=== PATIENT | female | born 1975 | race Two or more races ===

== ENCOUNTER 2017-03-19 20:38 | Emergency (ER) | payer OTHER ==
[~2017-03-19] VITALS: Ht 162.6 cm; Wt 172.4 kg
[2017-03-19 20:55] VITALS: BP 129/66
[2017-03-19] MEDS ORDERED: IV NORMAL SALINE 1000ML BAG 1,000 ML IV SCH (20:56)
[2017-03-19] MEDS ORDERED: DEXAMETHASONE SOD PHOS 20 MG/5 ML VIAL. IV ONE (21:00)
[2017-03-19] MEDS ORDERED: 0.9 % SODIUM CHLORIDE 10 ML DISP.SYRIN. IV PRN (21:00)
--- NOTE | 2017-03-19 21:04 | PHYS DOC ---
Past Medical History Past Medical History: Cancer, Diabetes-Type II, Hypertension, Other Additional Past Medical Histor: thyroid CA Past Surgical History: , Other Additional Past Surgical Histo: thyroidectomy Alcohol Use: Occasionally Drug Use: None Adult General Chief Complaint Chief Complaint: BLOOD SUGAR PROBLEM HPI HPI This is a pleasant 42-year-old diabetic hypertensive female who presents with 3 day history of sore throat that began as a dry oropharynx has gotten progressively worse. At home and at work she's had sick contacts with similar symptoms and she is worried she has strep throat. She has also noted the pain is Worse with swallowing not changed with position. She denies any change in voice, fevers that documented, but she has complained of chills. She is also noted that her sugars out of control although she admits that she has not used her insulin and several weeks secondary to financial challenges and she has not been able to replace her insulin stores. Patient denies any neck stiffness, trauma, headache, runny nose, ear pain, drainage, hearing loss, facial swelling , or neurologic deficit. Review of Systems Review of Systems Constitutional: Denies fever she does complain of chills Eyes: Denies change in visual acuity, redness, or eye pain [] HENT: Denies nasal congestion she does complain of sore throat Respiratory: Denies cough or shortness of breath [] Cardiovascular: No additional information not addressed in HPI [] GI: Denies abdominal pain, nausea, vomiting, bloody stools or diarrhea [] : Denies dysuria or hematuria [] Musculoskeletal: Denies back pain or joint pain [] Integument: Denies rash or skin lesions [] Neurologic: Denies headache, focal weakness or sensory changes [] Endocrine: Denies polyuria or polydipsia [] Current Medications Current Medications Current Medications Medications (Trade) Dose Ordered Sig/Berhane Start Time Stop Time Status Last Admin Dose Admin Dexamethasone Sodium Phosphate (Decadron) 10 mg 1X ONCE 03/19/17 21:00 03/19/17 21:05 DC 03/19/17 21:21 10 MG Sodium Chloride (Normal Saline Flush) 10 ml QSHIFT PRN 03/19/17 21:00 Allergies Allergies Allergies Coded Allergies Type Severity Reaction Last Updated Verified cefuroxime Allergy Severe hives, tongue and eyes swell 12/30/14 Yes doxycycline Allergy Intermediate 12/30/14 Yes shellfish derived Allergy Intermediate 12/30/14 Yes Physical Exam Physical Exam Constitutional: Well developed, well nourished, no acute distress, non-toxic appearance. [] HENT: Normocephalic, atraumatic, bilateral external ears normal, oropharynx does demonstrate erythema, no oral exudates, mild tonsillar hypertrophy. 2, no buccal lesions, no facial swelling no anterior neck fullness or pain. Eyes: PERRLA, EOMI, conjunctiva normal, no discharge. [] Neck: Normal range of motion, no tenderness, supple, no stridor. [] Cardiovascular:Heart rate regular rhythm, no murmur [] Lungs & Thorax: Bilateral breath sounds clear to auscultation [] Abdomen: Bowel sounds normal, soft, no tenderness, no masses, no pulsatile masses. [] Skin: Warm, dry, no erythema, no rash. [] Back: No tenderness, no CVA tenderness. [] Extremities: No tenderness, no cyanosis, no clubbing, ROM intact, no edema. [] Neurologic: Alert and oriented X 3, normal motor function, normal sensory function, no focal deficits noted. [] Psychologic: Affect normal, judgement normal, mood normal. [] Current Patient Data Vital Signs Vital Signs Date Time Temp Pulse Resp B/P (MAP) Pulse Ox O2 Delivery O2 Flow Rate FiO2 03/19/17 20:55 97.1 88 20 129/66 (87) 98 Room Air 97.1 Lab Values Laboratory Tests Test 03/19/17 20:46 03/19/17 20:57 Glucose (Fingerstick) 274 mg/dL (70-99) H Influenza Type A Antigen Negative (NEGATIVE) Influenza Type B Antigen Negative (NEGATIVE) EKG EKG [] Radiology/Procedures Radiology/Procedures [] Course & Med Decision Making Course & Med Decision Making Pertinent Labs and Imaging studies reviewed. (See chart for details) reviewed nursing notes, vital signs and appropriate laboratory work. [] Patient's pharyngitis pain is improved with Decadron and fluids. Patient denied discussed need to follow up with her primary care doctor to get her insulin filled. She may be able to get this medication for free given the fact this life-saving medication. We will refer her back to her primary care doctor to have the discussion. Her sugars were to 270 but she admits she just ate prior to arrival. Her influenza swab and streptococcal screen were negative patient is able to tolerate by mouth medications and fluids without issue. She has no change in her voice and anterior neck pain and stiffness doubt peritonsillar abscess, retropharyngeal abscess, Alejo angina, herpangina, viral stomatitis, or sinusitis. Patient is seen within a stable and understands his instructions. Impression: Pharyngitis likely viral nature. Hyperglycemia secondary to noncompliance of medications. Disposition: Follow-up with PCP in 24 hours for repeat evaluation as well as filling her medications. Dragon Disclaimer Dragon Disclaimer This electronic medical record was generated, in whole or in part, using a voice recognition dictation system. Departure Departure Impression: Primary Impression: Pharyngitis Additional Impressions: Hyperglycemia Noncompliance with medication regimen Disposition: 01 HOME, SELF-CARE Referrals: NO PCP (PCP) Patient Instructions: Hyperglycemia, Viral Pharyngitis Additional Instructions: This follow-up with her primary care doctor in the next 12-24 hours for repeat evaluation and filling her medications. I would advise that you return for any new or increasing symptoms or feel any questions or concerns. Problem Qualifiers YASSINE BHAT MD March 19, 2017 21:04
[2017-03-19 21:37] LABS: OBC FLU VALID
[2017-03-20 08:22] LABS: NEGATIVE OBC STREP NEG; POSITIVE OBC STREP POS
== END 2017-03-19 22:29 | disposition home or self-care (01) ==
LOC: ER 20:38
DX: J02.9 Acute pharyngitis, unspecified (principal); E11.65 Type 2 diabetes mellitus with hyperglycemia; I10 Essential (primary) hypertension; Z91.14 Patient's other noncompliance with medication regimen; Z88.1 Allergy status to other antibiotic agents; Z91.041 Radiographic dye allergy status
CPT/HCPCS: 82947; 87070; 87804; 87880; 96361; 96374; 99284; J1100; J7030

== ENCOUNTER 2017-04-06 18:14 | Emergency (ER) | payer OTHER ==
[~2017-04-06] VITALS: Ht 167.6 cm; Wt 172.4 kg
--- NOTE | 2017-04-06 19:54 | PHYS DOC ---
Past Medical History Past Medical History: Asthma, Cancer, Diabetes-Type II, Hypertension, Other Additional Past Medical Histor: thyroid CA Past Surgical History: , Other Additional Past Surgical Histo: thyroidectomy Alcohol Use: Occasionally Drug Use: None Adult General Chief Complaint Chief Complaint: FLANK PAIN HPI HPI Patient is a 42 year old female who presents with complaint of dysuria and left flank pain. Patient states that her symptoms started early this morning and awoke her from sleep. Patient states that the pain is mostly along her left side in her flank. Patient states that her pain is currently 6 out of 10. Patient does admit to dysuria and dark urine which started today. Denies fevers. Patient has not taken medications to help with symptoms at this time. Patient has history of diabetes mellitus type 2 and is currently on oral medication and insulin. States the pain worsens with urination. Review of Systems Review of Systems Constitutional: Denies fever or chills [] Eyes: Denies change in visual acuity, redness, or eye pain [] HENT: Denies nasal congestion or sore throat [] Respiratory: Denies cough or shortness of breath [] Cardiovascular: Denies chest pain or edema [] GI: Nausea, denies abdominal pain, vomiting, bloody stools or diarrhea [] : Dysuria, hematuria, left flank pain [] Musculoskeletal: Denies back pain or joint pain [] Integument: Denies rash or skin lesions [] Neurologic: Denies headache, focal weakness or sensory changes [] Current Medications Current Medications Current Medications Medications (Trade) Dose Ordered Sig/Berhane Start Time Stop Time Status Last Admin Dose Admin Ondansetron HCl (Zofran Odt) 4 mg 1X ONCE 04/06/17 20:00 04/06/17 20:01 DC 04/06/17 20:00 4 MG Phenazopyridine HCl (Pyridium) 200 mg 1X ONCE 04/06/17 20:00 04/06/17 20:01 DC 04/06/17 20:00 200 MG Sodium Chloride 1,000 ml @ 1,000 mls/hr Q1H 04/06/17 20:16 04/06/17 21:15 DC 04/06/17 21:13 1,000 MLS/HR Allergies Allergies Allergies Coded Allergies Type Severity Reaction Last Updated Verified cefuroxime Allergy Severe hives, tongue and eyes swell 04/06/17 Yes doxycycline Allergy Intermediate 04/06/17 Yes shellfish derived Allergy Intermediate 04/06/17 Yes Physical Exam Physical Exam Constitutional: Alert, obese, afebrile, no acute distress. [] HENT: Normocephalic, atraumatic, bilateral external ears normal, oropharynx moist, no oral exudates, nose normal. [] Eyes: PERRLA, EOMI, conjunctiva normal, no discharge. [] Neck: Normal range of motion, no tenderness, supple, no stridor. [] Cardiovascular:Heart rate regular rhythm, no murmur [] Lungs & Thorax: Bilateral breath sounds clear to auscultation [] Abdomen: Bowel sounds normal, soft, no tenderness, no masses, no pulsatile masses. [] Skin: Warm, dry, no erythema, no rash. [] Back: No midline tenderness, mild left CVA tenderness to palpation, no flank ecchymosis. [] Extremities: No tenderness, no cyanosis, no clubbing, ROM intact, no edema. [] Neurologic: Alert and oriented X 3, normal motor function, normal sensory function, no focal deficits noted. [] Current Patient Data Vital Signs Vital Signs Date Time Temp Pulse Resp B/P (MAP) Pulse Ox O2 Delivery O2 Flow Rate FiO2 04/06/17 19:35 98.1 87 20 151/81 (104) 96 Room Air 98.1 Lab Values Laboratory Tests Test 04/06/17 18:54 04/06/17 19:25 04/06/17 21:05 POC Urine HCG, Qualitative Hcg negative (Negative) Urine Collection Type Unknown Urine Color Yellow Urine Clarity Clear Urine pH 5.5 Urine Specific [place] >=1.030 Urine Protein Negative mg/dL (NEG-TRACE) Urine Glucose (UA) 100 mg/dL (NEG) Urine Ketones (Stick) Negative mg/dL (NEG) Urine Blood Negative (NEG) Urine Nitrite Negative (NEG) Urine Bilirubin Negative (NEG) Urine Urobilinogen Dipstick 0.2 mg/dL (0.2 mg/dL) Urine Leukocyte Esterase Negative (NEG) Urine RBC 0 /HPF (0-2) Urine WBC Occ /HPF (0-4) Urine Squamous Epithelial Cells Few /LPF Urine Bacteria Few /HPF (0-FEW) Urine Mucus Mod /LPF White Blood Count 6.2 x10^3/uL (4.0-11.0) Red Blood Count 4.09 x10^6/uL (3.50-5.40) Hemoglobin 11.1 g/dL (12.0-15.5) L Hematocrit 33.6 % (36.0-47.0) L Mean Corpuscular Volume 82 fL (79-100) Mean Corpuscular Hemoglobin 27 pg (25-35) Mean Corpuscular Hemoglobin Concent 33 g/dL (31-37) Red Cell Distribution Width 14.9 % (11.5-14.5) H Platelet Count 222 x10^3/uL (140-400) Neutrophils (%) (Auto) 46 % (31-73) Lymphocytes (%) (Auto) 47 % (24-48) Monocytes (%) (Auto) 6 % (0-9) Eosinophils (%) (Auto) 2 % (0-3) Basophils (%) (Auto) 0 % (0-3) Neutrophils # (Auto) 2.8 x10^3uL (1.8-7.7) Lymphocytes # (Auto) 2.9 x10^3/uL (1.0-4.8) Monocytes # (Auto) 0.3 x10^3/uL (0.0-1.1) Eosinophils # (Auto) 0.1 x10^3/uL (0.0-0.7) Basophils # (Auto) 0.0 x10^3/uL (0.0-0.2) Sodium Level 140 mmol/L (136-145) Potassium Level 3.8 mmol/L (3.5-5.1) Chloride Level 102 mmol/L (98-107) Carbon Dioxide Level 28 mmol/L (21-32) Anion Gap 10 (6-14) Blood Urea Nitrogen 18 mg/dL (7-20) Creatinine 0.7 mg/dL (0.6-1.0) Estimated GFR (Cockcroft-Gault) 91.3 BUN/Creatinine Ratio 26 (6-20) H Glucose Level 223 mg/dL (70-99) H Calcium Level 8.9 mg/dL (8.5-10.1) Total Bilirubin Pending Aspartate Amino Transferase (AST) Pending Alanine Aminotransferase (ALT) Pending Alkaline Phosphatase Pending Total Protein Pending Albumin Pending Albumin/Globulin Ratio Pending Lipase Pending Laboratory Tests 04/06/17 21:05 Laboratory Tests 04/06/17 21:05 EKG EKG Not performed [] Radiology/Procedures Radiology/Procedures [facility] [address] [place] [address] IMAGING REPORT Signed PATIENT: PRATIK DAVIS ACCOUNT: [id number] : 1975 LOCATION: ER AGE: 42 SEX: F EXAM STATUS: REG ER ORD. PHYSICIAN: CHRISTY GAINES MD REASON: left flank pain PROCEDURE: CT ABDOMEN PELVIS WO CONTRAST Exam: CT abdomen and pelvis without contrast HISTORY: Left flank pain. DATE OF SERVICE: 04/06/2017 COMPARISON: CT abdomen and pelvis from 12/30/2014. TECHNIQUE: Contiguous helical acquisitions were obtained through the abdomen and pelvis without IV contrast. Sagittal and coronal reformatted images are obtained and reviewed. FINDINGS: Lung bases are clear. Visualized heart is normal. The lack of IV contrast limits evaluation of abdominal pressure, however the liver, spleen, pancreas and gallbladder are normal. Both adrenal glands and bilateral kidneys are normal in size. No hydronephrosis or nephrolithiasis seen. Aorta is normal in caliber without aneurysm. Small and large bowel loops are nondilated and unremarkable. Appendix is normal. Urinary bladder is partially decompressed. Uterus is anteverted. No adnexal masses seen. Spondylotic changes. Degenerative arthrosis involving the right hip. IMPRESSION: 1. No acute intra-abdominal or pelvic process detected. 2. No evidence of urolithiasis or hydronephrosis seen. PQRS Compliance Statement: One or more of the following individualized dose reduction techniques were utilized for this examination: 1. Automated exposure control 2. Adjustment of the mA and/or kV according to patient size 3. Use of iterative reconstruction technique Electronically signed by: Linette Cm MD (04/06/2017 9:24 PM) DICTATED and SIGNED BY: LINETTE CM MD DATE: 04/06/172115 CC: CHRISTY GAINES MD; UNKNOWN PCP NAME ~ [] Course & Med Decision Making Course & Med Decision Making Pertinent Labs and Imaging studies reviewed. (See chart for details) Patient was started on IV fluids and was given Zofran and Pyridium. Imaging and lab work unremarkable at this time with the exception of mildly elevated liver enzymes and blood sugar of 223. Patient's symptoms are clinically consistent with urinary tract infection. Due to unknown etiology for patient's flank pain with presence of dysuria, the patient will be empirically treated with Bactrim and Pyridium with recommended follow-up in 3-4 days with patient's primary doctor if symptoms are not improving. Advised return emergency department for any worsening symptoms. Voiced understanding and in agreement with treatment plan. Dragon Disclaimer Dragon Disclaimer This electronic medical record was generated, in whole or in part, using a voice recognition dictation system. Departure Departure Impression: Primary Impression: Left flank pain Additional Impression: Dysuria Disposition: HOME, SELF-CARE Condition: IMPROVED Referrals: UNKNOWN PCP NAME (PCP) Patient Instructions: Dysuria, Flank Pain Additional Instructions: Follow-up to primary doctor in the next 3-4 days if symptoms are not improving. Return to the emergency department for any worsening symptoms. Scripts Phenazopyridine Hcl (PYRIDIUM) 200 Mg Tablet 200 MG PO TID, #5 TAB Prov: CHRISTY GAINES MD 04/06/17 Sulfamethoxazole/Trimethoprim (BACTRIM DS TABLET) 1 Each Tablet 1 TAB PO BID, #14 TAB Prov: CHRISTY GAINES MD 04/06/17 Problem Qualifiers CHRISTY GAINES MD Apr 06, 2017 19:54
[2017-04-06 19:55] LABS: BILIRUBIN,URINE NEGATIVE (NEG); GLUCOSE,URINE 100 mg/dL (NEG); NITRITE,URINE NEGATIVE (NEG); PH,URINE 5.5; PROTEIN,URINE NEGATIVE (NEG-TRACE); UROBILINOGEN,URINE 0.2 mg/dL (0.2 mg/dL)
[2017-04-06] MEDS ORDERED: PHENAZOPYRIDINE 200 MG TABLET. PO ONE (20:00)
[2017-04-06] MEDS ORDERED: ONDANSETRON ODT 4 MG TAB.RAPDIS. PO ONE (20:00)
[2017-04-06 20:08] LABS: BACTERIA,URINE FEW /HPF (0-FEW); RBC,URINE 0 /HPF (0-2); SQUAMOUS EPITHELIAL CELL,UR FEW /LPF; WBC,URINE OCC /HPF (0-4)
[2017-04-06] MEDS ORDERED: IV NORMAL SALINE 1000ML BAG 1,000 ML IV SCH (20:16)
[2017-04-06 21:18] LABS: BASO % 0 % (0-3); EOS % 2 % (0-3); HEMATOCRIT 33.6 % (36.0-47.0); HEMOGLOBIN 11.1 g/dL (12.0-15.5); LYMPH # 2.9 x10^3/uL (1.0-4.8); LYMPH % 47 % (24-48); MEAN CORPUSCULAR HEMOGLOBIN 27 pg (25-35); MEAN CORPUSCULAR HGB CONC 33 g/dL (31-37); MEAN CORPUSCULAR VOLUME 82 fL (79-100); MONO % 6 % (0-9); NEUT % 46 % (31-73); PLATELET COUNT 222 x10^3/uL (140-400); RED BLOOD COUNT 4.09 x10^6/uL (3.50-5.40); RED CELL DISTRIBUTION WIDTH 14.9 % (11.5-14.5); WHITE BLOOD COUNT 6.2 x10^3/uL (4.0-11.0)
--- NOTE | 2017-04-06 21:27 | RAD ---
Exam: CT abdomen and pelvis without contrast HISTORY: Left flank pain. DATE OF SERVICE: 04/06/2017 COMPARISON: CT abdomen and pelvis from 12/30/2014. TECHNIQUE: Contiguous helical acquisitions were obtained through the abdomen and pelvis without IV contrast. Sagittal and coronal reformatted images are obtained and reviewed. FINDINGS: Lung bases are clear. Visualized heart is normal. The lack of IV contrast limits evaluation of abdominal pressure, however the liver, spleen, pancreas and gallbladder are normal. Both adrenal glands and bilateral kidneys are normal in size. No hydronephrosis or nephrolithiasis seen. Aorta is normal in caliber without aneurysm. Small and large bowel loops are nondilated and unremarkable. Appendix is normal. Urinary bladder is partially decompressed. Uterus is anteverted. No adnexal masses seen. Spondylotic changes. Degenerative arthrosis involving the right hip. IMPRESSION: 1. No acute intra-abdominal or pelvic process detected. 2. No evidence of urolithiasis or hydronephrosis seen. PQRS Compliance Statement: One or more of the following individualized dose reduction techniques were utilized for this examination: 1. Automated exposure control 2. Adjustment of the mA and/or kV according to patient size 3. Use of iterative reconstruction technique Electronically signed by: Linette Cm MD (04/06/2017 9:24 PM)
[2017-04-06 21:29] LABS: CALCIUM 8.9 mg/dL (8.5-10.1); CREATININE 0.7 mg/dL (0.6-1.0); GFR 91.3; POTASSIUM 3.8 mmol/L (3.5-5.1)
[2017-04-06 21:36] LABS: ALBUMIN 3.5 g/dL (3.4-5.0); TOTAL BILIRUBIN 0.3 mg/dL (0.2-1.0); TOTAL PROTEIN 7.1 g/dL (6.4-8.2)
[2017-04-06] MEDS ORDERED: PHEN-318 PO (21:40)
[2017-04-06] MEDS ORDERED: SULF1TAB24 PO (21:40)
[2017-04-06 22:50] VITALS: BP 158/94
== END 2017-04-06 22:44 | disposition home or self-care (01) ==
LOC: ER 18:14
DX: R10.9 Unspecified abdominal pain (principal); R30.0 Dysuria; R31.9 Hematuria, unspecified; R11.0 Nausea; J45.909 Unspecified asthma, uncomplicated; E11.9 Type 2 diabetes mellitus without complications; I10 Essential (primary) hypertension; R74.8 Abnormal levels of other serum enzymes; E89.0 Postprocedural hypothyroidism; E66.9 Obesity, unspecified; Z88.1 Allergy status to other antibiotic agents; Z88.8 Allergy status to other drugs, medicaments and biological substances; Z91.013 Allergy to seafood; Z68.44 Body mass index [BMI] 60.0-69.9, adult; Z98.890 Other specified postprocedural states; Z79.4 Long term (current) use of insulin; Z79.899 Other long term (current) drug therapy
CPT/HCPCS: 36415; 74176; 80053; 81001; 81025; 83690; 85027; 96360; 99285; J7030; Q0162

== ENCOUNTER 2017-07-20 22:08 | Emergency (ER) | payer OTHER ==
[~2017-07-20] VITALS: Ht 170.2 cm; Wt 167.8 kg
[~2017-07-20 22:08] MED LIST: PHEN-318 PO; SULF1TAB24 PO
[2017-07-20 22:58] LABS: BASO % 1 % (0-3); EOS % 1 % (0-3); HEMATOCRIT 33.8 % (36.0-47.0); HEMOGLOBIN 11.1 g/dL (12.0-15.5); LYMPH # 2.8 x10^3/uL (1.0-4.8); LYMPH % 41 % (24-48); MEAN CORPUSCULAR HEMOGLOBIN 27 pg (25-35); MEAN CORPUSCULAR HGB CONC 33 g/dL (31-37); MEAN CORPUSCULAR VOLUME 81 fL (79-100); MONO % 6 % (0-9); NEUT % 52 % (31-73); PLATELET COUNT 219 x10^3/uL (140-400); RED BLOOD COUNT 4.15 x10^6/uL (3.50-5.40); RED CELL DISTRIBUTION WIDTH 14.5 % (11.5-14.5); WHITE BLOOD COUNT 6.8 x10^3/uL (4.0-11.0)
[2017-07-20 23:11] LABS: CALCIUM 8.9 mg/dL (8.5-10.1); CREATININE 0.7 mg/dL (0.6-1.0); GFR 91.3; POTASSIUM 3.8 mmol/L (3.5-5.1)
[2017-07-20 23:18] LABS: ALBUMIN 3.4 g/dL (3.4-5.0); ALBUMIN/GLOBULIN RATIO 1.1 (1.0-1.7); TOTAL BILIRUBIN 0.2 mg/dL (0.2-1.0); TOTAL PROTEIN 6.6 g/dL (6.4-8.2)
[2017-07-20] MEDS ORDERED: ASPIRIN CHEWABLE 81 MG TABLET. PO ONE (23:45)
[2017-07-20] MEDS ORDERED: ALPRAZolam 0.5 MG TABLET PO ONE (23:45)
[2017-07-20] MEDS ORDERED: VALS80TA3 PO (23:50)
--- NOTE | 2017-07-20 23:50 | PHYS DOC ---
Past Medical History Past Medical History: Anxiety, Asthma, Cancer, Diabetes-Type II, Hypertension, Other Additional Past Medical Histor: thyroid CA Past Surgical History: , Other Additional Past Surgical Histo: thyroidectomy Alcohol Use: Occasionally Drug Use: None Adult General Chief Complaint Chief Complaint: CHEST PAIN HPI HPI Ordered 2-year-old female with a history of hypertension which is not treated, type 2 diabetes with which patient is noncompliant now presents to the emergency department because of chest wall soreness. She states she think she was having an anxiety attack earlier. She does have a long history of recurrent anxiety however she is not on a benzodiazepine. Patient's chest wall is sore with movement and palpation. She denies pleuritic pain or exertional chest pain. No nausea vomiting diaphoresis or shortness of air. Patient feels improved but is still anxious. She was previously diagnosed with hypertension and on an RAFAL inhibitor however because of side effects she stopped taking it and has not resumed a substitute medication since. Patient has never been known to have coronary artery disease and she has no family history thereof. Review of Systems Review of Systems Constitutional: Denies fever or chills [] Eyes: Denies change in visual acuity, redness, or eye pain [] HENT: Denies nasal congestion or sore throat [] Respiratory: Denies cough or shortness of breath [] Cardiovascular: No additional information not addressed in HPI [] GI: Denies abdominal pain, nausea, vomiting, bloody stools or diarrhea [] : Denies dysuria or hematuria [] Musculoskeletal: Denies back pain or joint pain [] Integument: Denies rash or skin lesions [] Neurologic: Denies headache, focal weakness or sensory changes [] Endocrine: Denies polyuria or polydipsia [] Current Medications Current Medications Current Medications Medications (Trade) Dose Ordered Sig/Berhane Start Time Stop Time Status Last Admin Dose Admin Alprazolam (Xanax) 0.5 mg 1X ONCE 07/20/17 23:45 07/20/17 23:46 DC 07/20/17 22:51 0.5 MG Aspirin (Children'S Aspirin) 324 mg 1X ONCE 07/20/17 23:45 07/20/17 23:46 DC 07/20/17 22:51 324 MG Allergies Allergies Allergies Coded Allergies Type Severity Reaction Last Updated Verified cefuroxime Allergy Severe hives, tongue and eyes swell 04/06/17 Yes doxycycline Allergy Intermediate 04/06/17 Yes shellfish derived Allergy Intermediate 04/06/17 Yes Physical Exam Physical Exam 42-year-old female alert communicative cooperative and appropriate no acute distress clear lungs regular rate and rhythm no tachycardia hypertensive on exam at approximately 170/90. Nonfocal neurologic exam. Patient admits to being mildly anxious but she is not in any visible distress. Constitutional: Well developed, well nourished, no acute distress, non-toxic appearance. [] HENT: Normocephalic, atraumatic, bilateral external ears normal, oropharynx moist, no oral exudates, nose normal. [] Eyes: PERRLA, EOMI, conjunctiva normal, no discharge. [] Neck: Normal range of motion, no tenderness, supple, no stridor. [] Cardiovascular:Heart rate regular rhythm, no murmur [] Lungs & Thorax: Bilateral breath sounds clear to auscultation [] Abdomen: Bowel sounds normal, soft, no tenderness, no masses, no pulsatile masses. [] Skin: Warm, dry, no erythema, no rash. [] Back: No tenderness, no CVA tenderness. [] Extremities: No tenderness, no cyanosis, no clubbing, ROM intact, no edema. [] Neurologic: Alert and oriented X 3, normal motor function, normal sensory function, no focal deficits noted. [] Psychologic: Affect normal, judgement normal, mood normal. [] Current Patient Data Vital Signs Vital Signs Date Time Temp Pulse Resp B/P (MAP) Pulse Ox O2 Delivery O2 Flow Rate FiO2 07/20/17 22:19 98.4 85 16 171/83 (112) 98 Room Air 98.4 Lab Values Laboratory Tests Test 07/20/17 22:50 White Blood Count 6.8 x10^3/uL (4.0-11.0) Red Blood Count 4.15 x10^6/uL (3.50-5.40) Hemoglobin 11.1 g/dL (12.0-15.5) L Hematocrit 33.8 % (36.0-47.0) L Mean Corpuscular Volume 81 fL (79-100) Mean Corpuscular Hemoglobin 27 pg (25-35) Mean Corpuscular Hemoglobin Concent 33 g/dL (31-37) Red Cell Distribution Width 14.5 % (11.5-14.5) Platelet Count 219 x10^3/uL (140-400) Neutrophils (%) (Auto) 52 % (31-73) Lymphocytes (%) (Auto) 41 % (24-48) Monocytes (%) (Auto) 6 % (0-9) Eosinophils (%) (Auto) 1 % (0-3) Basophils (%) (Auto) 1 % (0-3) Neutrophils # (Auto) 3.5 x10^3uL (1.8-7.7) Lymphocytes # (Auto) 2.8 x10^3/uL (1.0-4.8) Monocytes # (Auto) 0.4 x10^3/uL (0.0-1.1) Eosinophils # (Auto) 0.1 x10^3/uL (0.0-0.7) Basophils # (Auto) 0.0 x10^3/uL (0.0-0.2) Sodium Level 139 mmol/L (136-145) Potassium Level 3.8 mmol/L (3.5-5.1) Chloride Level 103 mmol/L (98-107) Carbon Dioxide Level 28 mmol/L (21-32) Anion Gap 8 (6-14) Blood Urea Nitrogen 19 mg/dL (7-20) Creatinine 0.7 mg/dL (0.6-1.0) Estimated GFR (Cockcroft-Gault) 91.3 BUN/Creatinine Ratio 27 (6-20) H Glucose Level 265 mg/dL (70-99) H Calcium Level 8.9 mg/dL (8.5-10.1) Total Bilirubin 0.2 mg/dL (0.2-1.0) Aspartate Amino Transferase (AST) 22 U/L (15-37) Alanine Aminotransferase (ALT) 47 U/L (14-59) Alkaline Phosphatase 118 U/L (46-116) H Troponin I Quantitative < 0.017 ng/mL (0.000-0.055) Total Protein 6.6 g/dL (6.4-8.2) Albumin 3.4 g/dL (3.4-5.0) Albumin/Globulin Ratio 1.1 (1.0-1.7) Laboratory Tests 07/20/17 22:50 Laboratory Tests 07/20/17 22:50 EKG EKG EKG normal sinus rhythm at 89 normal axis no STEMI interpreted by me[] Radiology/Procedures Radiology/Procedures Chest x-ray chronic changes no acute disease interpreted by me[] Course & Med Decision Making Course & Med Decision Making Pertinent Labs and Imaging studies reviewed. (See chart for details) Signs and symptoms consistent with chest wall pain which is easily reproducible on exam. No crepitus or bony tenderness. No infectious prodrome. EKG and troponin both unremarkable. Patient with no clinical evidence of acute coronary syndrome. Heart scores 2 based on risk factor profile. Patient has a clearly contributory anxiety component which was addressed with Xanax in ED. She's were to follow up with her doctor to discuss with her the might be beneficial for her as an outpatient. Discussed with patient at length the critical importance of adequate blood pressure control and the potential for profound long-term ramifications if she fails to address this. Prescription for valsartan administered for 10 doses so patient can have care reinitiated and therapeutic effect evaluated by her doctor upon follow-up. No further workup or treatment indicated. Patient agrees that outpatient follow-up and strict return precautions given [] Dragon Disclaimer Dragon Disclaimer This electronic medical record was generated, in whole or in part, using a voice recognition dictation system. Departure Departure Impression: Primary Impression: Chest wall pain Additional Impressions: Anxiety Hypertension Disposition: 01 HOME, SELF-CARE Referrals: LIGIA AGUIRRE MD (PCP) Patient Instructions: Anxiety and Panic Attacks, Chest Wall Pain, Hypertension Additional Instructions: You have been experiencing some chest wall pain tonight. This means soreness as a result of tenderness of the ribs and muscles of your chest wall. Take 800 mg of ibuprofen every 6 hours as needed. Consider warm soaks and gentle stretches. It is clear that your anxiety is contributing to her symptoms tonight. Follow- up with your doctor tomorrow to discuss whether he may benefit from a prescription for anxiety medication such as Xanax for use as needed. Your given a dose of 0.5 mg of Xanax tonight, so follow-up with your doctor will be an opportunity to discuss whatever therapeutic benefit you feel it gave you. He previously been diagnosed with hypertension and your blood pressure was also uncontrolled tonight. Blood pressure was 170/95 tonight. I have given your prescription for several doses of valsartan which is a blood pressure medicine. Take this as prescribed once a day and follow-up with your doctor for reevaluation in 1-2 days, including recheck of your blood pressure and to plan continued therapy for optimal blood pressure control. Return immediately for new severe or worsening symptoms Scripts Valsartan (DIOVAN) 80 Mg Tablet 80 MG PO DAILY, #10 TAB Prov: CARITO BAKER MD 07/20/17 Problem Qualifiers CARITO BAKER MD Jul 20, 2017 23:50
[2017-07-20 23:54] VITALS: BP 145/82
--- NOTE | 2017-07-21 06:46 | EKG ---
[facility] [address] [place] [address] Test Date: 2017-07-20 Test Time: 22:14:46 Pat Name: PRATIK DAVIS Department: Room: Gender: F General Dentist/Owner: : 1975 Requested By: CARITO BAKER Order Number: [id number] Reading MD: Measurements Intervals Holmes Rate: 89 P: 29 TX: 176 QRS: -2 QRSD: 96 T: 43 QT: 370 QTc: 451 Interpretive Statements SINUS RHYTHM LEFTWARD AXIS ST & T ABNORMALITY, CONSIDER HIGH LATERAL ISCHEMIA OR LEFT VENTRICULAR STRAIN RI6.01 Unconfirmed report No previous ECG available for comparison
--- NOTE | 2017-07-21 07:37 | RAD ---
Portable chest, 07/20/2017: History: Anxiety, left chest pressure The left ventricle is mildly prominent. The pulmonary vascularity is normal. No pulmonary infiltrates are seen. There is no evidence of pleural fluid. Moderate spurring is present in the spine. IMPRESSION: No acute cardiopulmonary abnormality is detected.
== END 2017-07-21 00:02 | disposition home or self-care (01) ==
LOC: ER 22:08
DX: R07.89 Other chest pain (principal); F41.9 Anxiety disorder, unspecified; I10 Essential (primary) hypertension; J45.909 Unspecified asthma, uncomplicated; E11.9 Type 2 diabetes mellitus without complications; E89.0 Postprocedural hypothyroidism; Z79.899 Other long term (current) drug therapy; Z88.1 Allergy status to other antibiotic agents; Z91.013 Allergy to seafood
CPT/HCPCS: 36415; 71010; 80053; 84484; 85025; 93005; 99285-25

== ENCOUNTER 2017-11-11 22:27 | Emergency (ER) | payer OTHER ==
[2017-11-11] MEDS ORDERED: IPRATRPIUM/ALBUTEROL 0.5/2.5MG 3 ML NEBU. (23:50)
[2017-11-12] MEDS: IPRATRPIUM/ALBUTEROL 0.5/2.5MG 3 ML NEBU. NEB (00:11)
== END 2017-11-12 00:38 | disposition home or self-care (01) ==
LOC: ER 11-12 00:38
DX: J45.901 Unspecified asthma with (acute) exacerbation (principal); F41.9 Anxiety disorder, unspecified; E11.9 Type 2 diabetes mellitus without complications; I10 Essential (primary) hypertension; E89.0 Postprocedural hypothyroidism; Z88.1 Allergy status to other antibiotic agents; Z91.013 Allergy to seafood
CPT/HCPCS: 94640; 99283-25; J7620